=== PATIENT | male | born 2000 | race Caucasian/White ===

== ENCOUNTER → 2022-10-17 09:31 | Outpatient (CLI) | payer OTHER, SELFPAY ==
--- NOTE | ~2022-10-17 | XR_ITS ---
Clinical Indication: Respiratory tuberculosis screening PA and lateral views of the chest: Comparison: 03/26/2014 Findings: The lungs are clear, without evidence of focal consolidation or pleural effusion. Cardiome diastinal silhouette is within normal limits. Bones and soft tissues are unremarkable. Impression: Normal chest. Reviewed, dictated and finalized at [facility]. Impression: Normal chest.
== END ==
PROVIDERS: PCP Family Medicine; Visit Provider Nurse Practitioner Family
DX: Z11.1 Encounter for screening for respiratory tuberculosis (principal)
CPT/HCPCS: 71046

== ENCOUNTER 2023-01-23 08:45 | Emergency (ER) | payer OTHER, SELFPAY ==
--- NOTE | ~2023-01-23 | XR_ITS ---
XR wrist LT min 3V 01/23/2023 09:08 INDICATION: Left wrist pain PROCEDURE: 4 views left wrist COMPARISON: No prior studies for comparison. FINDINGS: Fracture, dislocation or subluxation is not identified. The soft tissues appear within norm al limits. No foreign bodies are identified. IMPRESSION: 1: NO ACUTE BONE OR JOINT ABNORMALITY IDENTIFIED. Reviewed, dictated and finalized at location A.
[2023-01-23 08:51] VITALS: BP 151/73; PULSE 83; RESP 16; TEMP 36.6; O2SAT 98
--- NOTE | 2023-01-23 08:52 | ED.UPPEXIN ---
HPI - Extremity Injury (Upper) General Chief Complaint: Extremity Injury, Upper Stated Complaint: Lt Wrist Pain Time Seen by Provider: 01/23/23 08:54 Source: patient, RN notes reviewed and old records reviewed Mode of arrival: ambulatory Limitations: no limitations History of Present Illness HPI narrative: 22-year-old male presents to the [facility] with complaints of left wrist pain since Monday or Monday. Patient has been wearing a brace that he purchased. States that he may have banged the top of it. Pain is worse with rotation. Able to flex and dorsiflex. Able to do 5 finger touch without increased pain. No ecchymosis, swelling or erythema noted. Unable to reproduce pain Onset (ago): day(s) (2-3) Related Data Home Medications Medication Instructions Recorded Confirmed levocetirizine 5 mg tablet (Xyzal) 5 mg PO DAILY 07/18/22 07/18/22 Allergies Allergy/AdvReac Type Severity Reaction Status Date / Time No Known Allergies Allergy Unverified 07/18/22 08:54 Review of Systems Review of Systems: All systems reviewed & are unremarkable except as noted in HPI and below Constitutional: Constitutional: Reports no additional constitutional complaints Eyes: Eyes: Reports no additional eye complaints ENT: Reports system reviewed and no additional complaints, except as documented Cardiovascular: Cardiovascular: Reports no additional cardiovascular complaints, Denies chest pain and Denies dyspnea Respiratory: Respiratory: Reports no additional respiratory complaints, Denies chest congestion, Denies cough and Denies dyspnea Gastrointestinal: Gastrointestinal: Reports no additional gastrointestinal complaints, Denies abdominal pain, Denies nausea and Denies vomiting Musculoskeletal: Musculoskeletal: Reports as per HPI Integumentary/Breasts: Skin/Breast: Reports system reviewed and no additional complaints, except as docu Neurologic: Reports system reviewed and no additional complaints, except as documented Psychiatric: Psychiatric: Reports no additional psychiatric complaints Allergic/Immunologic: Allergic/Immunologic: Reports no additional allergic/immunologic complaints PMFSH Past Medical History Medical History Allergic rhinitis BMI 33.0-33.9,adult BMI 34.0-34.9,adult Chronic allergic rhinitis Elevated red blood cell count Encounter to establish care Ingrown toenail of both feet Screening for tuberculosis Surgical History Surgical History Hx of tonsillectomy Family History Family History Father Diabetes mellitus Hypertension Depression Grandparent Diabetes mellitus Heart disease Grandparent Diabetes mellitus Heart disease Sibling Depression Social History Social History Smoking status: Never smoker Alcohol intake: current Alcohol use details: Rarely Substance use: never Lack of Transportation: No Lack of Food: Never True Current Housing: I Have Housing Concerned About Future Housing: No Difficulty Paying Gas/Electric Bills: No Difficulty Paying for Meds: No Currently Unemployed: No Education: Associate Degree Difficulty w/ Childcare or Family Care: No Comments At the time of my signature, I reviewed and agree with the nursing past medical, surgical, social, and family history. There is no relevant family history pertinent to the patient complaint. Exam Const: General: cooperative, healthy appearing, comfortable, no acute distress, well developed, alert and well nourished Nutritional Appearance: well nourished Orientation/consciousness: patient oriented x3 Limitations: no limitations HENMT: Head: normal to inspection Ears: hearing grossly normal bilaterally and external ears normal Face/Nose/Sinus: Normal external nose present, Norm
== END 2023-01-23 09:35 | disposition home or self-care (01) ==
PROVIDERS: Emergency Provider Nurse Practitioner; PCP Nurse Practitioner Family
DX: S60.212A Contusion of left wrist, initial encounter (principal); X58.XXXA Exposure to other specified factors, initial encounter
CPT/HCPCS: 73110; 99213; G0463

== ENCOUNTER → 2024-08-28 12:11 | Outpatient (CLI) | payer OTHER, SELFPAY ==
--- NOTE | ~2024-08-28 | XR_ITS ---
EXAMINATION: XR shoulder RT min 2V DATE: 08/28/2024 12:28 INDICATION: Right shoulder pain 3 weeks post fall TECHNIQUE: AP internally and externally rotated, AP oblique externally rotated and axillary views of the right shoulder were obtained. COMPARISON: None FINDINGS: Normal alignment. No fracture. Glenohumeral joint is normal. Acromioclavicular joint is normal. Soft tissues are unremarkable. Visualized portions of the right lung are clear. IMPRESSION: Normal right shoulder radiographs. Reviewed, dictated and finalized at location B. [facility]
--- OUTSIDE RECORDS SUMMARY | 2024-08-28 13:48 | XMS_ITS | Referral Summary ---
Author Organization [email or web address] Address [address] [place] [address] Care Team Providers Care Supervisor [address] Name Role Phone Tiffany Montilla MD Primary Care Provider Source Comments [email or web address],non-owned Affiliates and Associated Physician Practices is amultiple site organization consisting of ambulatory clinics and hospital sitesin [place], [place], [place] and [place]. This disclosure is being madepursuant to the Care Everywhere program and may not contain all information available regarding this patient. Last updated 18.[email or web address] Allergies No known active allergies Medications Be aware that medications may not be up to date on this document. Always verify current medications with the patient. No known medications Active Problems No known active problems Social History Tobacco Use Types Packs/Day Years Used Date Smoking Tobacco: Never Smokeless Tobacco: Never Alcohol Use Standard Drinks/Week Comments No 0 (1 standard drink = 0.6 oz pur e alcohol) Sex and Gender Information Value Date Recorded Sex Assigned at Not on file Gender Identity Not on file Sexual Orientation Not on file Last Filed Vital Signs Vital Sign Reading Time Taken Comments Blood Pressure 118/70 06/21/2019 2:54 PM CLAY ARTISAN Pulse 81 06/21/2019 2:54 PM CLAY ARTISAN Temperature 37.3 C (99.1 F) 06/21/2019 2:54 PM CLAY ARTISAN Respiratory Rate 16 06/21/2019 2:54 PM CLAY ARTISAN Oxygen Saturation 97% 06/21/2019 2:54 PM CLAY ARTISAN Inhaled Oxygen Concentration - - Weight 98.4 kg (217 lb) 06/21/2019 2:54 PM CLAY ARTISAN Height 174 cm (5' 8.5 ) 06/21/2019 2:54 PM CLAY ARTISAN Body Mass Index 32.51 06/21/2019 2:54 PM CLAY ARTISAN Plan of Treatment Not on file Insurance Payer Benefit Plan / Group Subscriber ID Effective Dates Phone Address Type AETNA AETNA PPO/POS/OA [id number] 2017-Present [address] [place] [address] PPO Care Teams Supervisor [address] Relationship Specialty Start Date End Date Tiffany Montilla MD [address] [place] [id number] PCP - General 03/16/10
--- OUTSIDE RECORDS SUMMARY | 2024-08-28 13:49 | XMS_ITS | Continuity of Care Document ---
Author Organization [facility]ly [facility] Address [address] [place] [address] utive [facility] [address] [place] [address] Phone Care Team Providers Care Tub Chucker Name Role Phone Larsen OD, Blair Unavailable Unavailable Procedures Procedure Date Eye Exam & Treatment Refraction Advance Directives Directive Yes / No Effective Date File Name No Information Encounters Encounter Description Practice Location Reason(s) For Visit Diagnoses Date Provider Providers Copied on Encounter [facility], [address] [place] [address] [address], [place], [place], [id number], tel:[phone] [facility] No Information [phone] Larsen OD Blair. [address] , [address], [place], [address], [place]. tel:[phone] Family History Family Member Type Diagnosis Age At Onset No Information Payers Payer name Insurance type Covered democrat ID Authoriza tion(s) [facility] [id number] Social History Type Description Quantity Date Captured Comments Sex Male Smoking Status No Information Chief Complaint And Reason For Visit No Information Reason For Referral Reason For Referral No Information History Of Present Illness Encounter Date Complaint History Of Prese nt Illness No Information Functional Status Date Functional Assessmen t No Information Instructions Date Instruction Additional Infor mation No Information Assessments Type Assessment Date No Information Patient Care Teams Name Effective Dates (start - stop) Status Members No Information
--- OUTSIDE RECORDS SUMMARY | 2024-08-28 13:49 | XMS_ITS | Patient Health Summary ---
Author Organization [facility] Address [address] [place] [address] Care Team Providers Care Impress Associate Name Role Phone Tiffany Montilla MD Primary Care Provider Note from [facility],non-owned Affiliates and Associated Physician Practices is amultiple site organization consisting of ambulatory clinics and hospital sitesin [place], [place], [place] and [place]. This disclosure is being madepursuant to the Care Everywhere program and may not contain all information available regarding this patient. Last updated 18.[facility] Allergies No known active allergies Medications Be [...] Comments Blood Pressure 118/70 06/21/2019 2:54 PM STRATEGIC INSIGHTS LEAD Pulse 81 06/21/2019 2:54 PM STRATEGIC INSIGHTS LEAD Temperature 37.3 C (99.1 F) 06/21/2019 2:54 PM STRATEGIC INSIGHTS LEAD Respiratory Rate 16 06/21/2019 2:54 PM STRATEGIC INSIGHTS LEAD Oxygen Saturation 97% 06/21/2019 2:54 PM STRATEGIC INSIGHTS LEAD Inhaled Oxygen Concentration - - Weight 98.4 kg (217 lb) 06/21/2019 2:54 PM STRATEGIC INSIGHTS LEAD Height 174 cm (5' 8.5 ) 06/21/2019 2:54 PM STRATEGIC INSIGHTS LEAD Body Mass Index 32.51 06/21/2019 2:54 PM STRATEGIC INSIGHTS LEAD Procedures * STREP A SCREEN - POINT OF CARE (AMB) STL(Performed 06/21/2019) Performed for Physically well but worried * GROSS EXAM PATHOLOGY(Performed 03/17/2006) Results * STREP A SCREEN - POINT OF CARE (AMB) STL (06/21/2019) Strep A Rapid POCT Negative Negative Strep A Internal Control Present Lot # [id number] Expiration Date 11/30/2020 Throat ENTIRE THROAT (SURFACE REGION OF NECK) / Unknown 06/21/2019 Hunter Leung VETERINARY PARASITOLOGIST-[facility] - POINT OF CARE ORDERABLES * GROSS EXAM PATHOLOGY (03/17/2006 11:00 AM CDT) Result CASE NUMBER [id number] [facility] PATH REPORT Comment: ORDERING PHYSICIAN CHRISTINE SPICER SPECIMEN TYPE Tonsils CLINICAL HISTORY The patient is a 5-year-old boy with tonsillitis. GROSS DESCRIPTION The specimen labeled with the patient's name and tonsils is received fresh for gross examination only and consists of two egg-shaped, pink- escoto tonsils measuring 2.5 x 2 x 1 cm and 2.6 x 1.5 x 1 cm weighing approximately 7 g combined. On cut surface the tonsils have a cerebriform yellow-escoto appearance. No sections are taken. (GC/ld) GROSS DIAGNOSIS GROSS DIAGNOSIS TONSILS. This case has been personally reviewed and interpreted by the attending (teaching) pathologist. Bond Clerk FOX FLANNERY RESIDENT IN PATHOLOG Oneil Washington M.D. PATHOLOGIST Drew Muniz M.D. ELECTRONICALLY JENNIFER Drew Muniz MISCELLANEOUS SAMPLES / Unknown 03/17/2006 11:00 AM CDT 03/17/2006 1:08 PM CDT Historical Provider LAB - PATHOLOGY/C YTOLOGY ORDERABLES [facility] PATH REPORT Care Teams Impress Associate Relationship Specialty Start Date End Date Tiffany Montilla MD [address] [place] [id number] PCP - General 03/16/10
--- OUTSIDE RECORDS SUMMARY | 2024-08-28 13:49 | XMS_ITS | Clinical Summary ---
Author Organization [facility] [employer] Address [address] [place] [address] Care Team Providers Care Electric Pile Driver Operator Name Role Phone Tiffany Montilla MD Primary Care Provider Source Comments [facility] [employer],non-owned Affiliates and Associated Physician Practices is amultiple site organization consisting of ambulatory clinics and hospital sitesin [place], [place], [place] and [place]. This disclosure is being madepursuant to the Care Everywhere program and may not contain all information available regarding this patient. Last updated 18.[employer] Allergies No known active allergies Medications Be [...] Comments Blood Pressure 118/70 06/21/2019 2:54 PM ROTARY DRYER OPERATOR Pulse 81 06/21/2019 2:54 PM ROTARY DRYER OPERATOR Temperature 37.3 C (99.1 F) 06/21/2019 2:54 PM ROTARY DRYER OPERATOR Respiratory Rate 16 06/21/2019 2:54 PM ROTARY DRYER OPERATOR Oxygen Saturation 97% 06/21/2019 2:54 PM ROTARY DRYER OPERATOR Inhaled Oxygen Concentration - - Weight 98.4 kg (217 lb) 06/21/2019 2:54 PM ROTARY DRYER OPERATOR Height 174 cm (5' 8.5 ) 06/21/2019 2:54 PM ROTARY DRYER OPERATOR Body Mass Index 32.51 06/21/2019 2:54 PM ROTARY DRYER OPERATOR Plan of Treatment Health Maintenance Due Date Last Done Comments HIV SCREENING 09/12/2015 HPV VACCINE (1 - Male 3-dose series) 09/12/2015 MENINGOCOCCAL (Group B) VACC INE (1 of 2 - Standard) 2016 HEPATITIS C SCREENING 09/07/2018 DTAP/TDAP/TD VACCINES (1 - Tdap) 09/12/2019 HEPATITIS B VACCINE (1 of 3 - 19+ 3-dose series) 09/12/2019 COVID-19 VACCINE (1 - 2023-2 5 season) 2024 INFLUENZA VACCINE (#1) 2024 DEPRESSION SCREENING 07/03/2024 ZOSTER VACCINE (1 of 2) 2050 HIB VACCINE Aged Out No longer eligi ble based on patient's age to complete this topic MENINGOCOCCAL VACCINE Aged Out No sophie lucas eligible based on patient's age to complete this topic PNEUMOCOCCAL VACCINE Aged Out No long er eligible based on patient's age to complete this topic Care Teams Electric Pile Driver Operator Relationship Specialty Start Date End Date Tiffany Montilla MD [address] [place] [id number] PCP - General 03/16/10
== END ==
LOC: EXPTROY 12:13
PROVIDERS: PCP Nurse Practitioner Family; Visit Provider Nurse Practitioner Family
DX: M25.511 Pain in right shoulder (principal)
CPT/HCPCS: 73030